=== PATIENT | male | born 1970 | race African-American/Black ===

== ENCOUNTER 2018-02-05 10:40 | Inpatient (IN) | payer SELFPAY ==
[~2018-02-05] VITALS: Ht 182.9 cm; Wt 108.9 kg
[2018-02-05 11:16] VITALS: BP 149/91
[2018-02-05 11:30] VITALS: BP 159/91
--- NOTE | 2018-02-05 11:38 | Emergency Room Report ---
History of Present Illness General Chief Complaint: Generalized Weakness Source: Patient Present Illness HPI This patient c/o feeling off balance and like he will fall for about 2-3 weeks. He has in fact fallen several times. No head trauma. Acc to him and he is walking abnormally. This is not new (within 24 hours) but patient finally came to ED. No similar history. Meds: Glipizide, Metformin, Amlodopine, Lisinopril Allergies: Coded Allergies: No Known Allergies (Unverified , 02/05/18) Nursing Documentation-[facility] Past Medical History: No History, Except For Hx Hypertension: Yes Hx Diabetes: Yes Review of Systems Constitutional: Reports: no symptoms Eye: Reports: no symptoms ENT: Reports: no symptoms Respiratory: Reports: no symptoms Cardiovascular: Reports: no symptoms Gastrointestinal: Reports: no symptoms Genitourinary: Reports: no symptoms Musculoskeletal: Reports: no symptoms Skin: Reports: no symptoms Psychiatric: Reports: no symptoms Neurological: Reports: no symptoms Endocrine: Reports: no symptoms Hematologic/Lymphatic: Reports: no symptoms Allergic: Reports: no symptoms Physical Exam Vital Signs Date Time Temp Pulse Resp B/P (MAP) Pulse Ox O2 Delivery O2 Flow Rate FiO2 02/05/18 10:59 98.8 94 29 174/103 93 Room Air 98.8 Sp02 EP Interpretation: reviewed, normal General Appearance: normal inspection, well appearing, no apparent distress, alert, GCS 15, non-toxic Head: normocephalic, atraumatic Eyes: bilateral eye normal inspection, bilateral eye PERRL, bilateral eye EOMI ENT: normal ENT inspection, hearing grossly normal, normal pharynx, no angioedema, normal voice, moist mucus membranes Neck: normal inspection, full range of motion, supple, no meningismus, no bony tend Respiratory: normal inspection, lungs clear, normal breath sounds, no rhonchi, no respiratory distress, no retraction, no accessory muscle use, no wheezing Cardiovascular #1: normal inspection, regular rate, rhythm, no edema Gastrointestinal: normal inspection, normal bowel sounds, non tender, soft, no mass, non-distended Musculoskeletal: gait/station normal, normal range of motion Neurologic: normal inspection, alert, oriented x3, responsive, motor strength/ tone normal, abnormal gait, other - finger to nose is subtly abnormal left side , heel to miller subtly abnormal left side. gait: ataxic Psychiatric: normal inspection, judgement/insight normal, memory normal Suicide Risk Assessment: Suicidal Ideation: No Had intent to initiate attempt: No Pt's plan for suicide attempt: No Has means to complete attempt: No Skin: normal inspection, normal color, no rash, warm/dry Medical Decision Making Diagnostic Impression: Primary Impression: Stroke ER Course 174/103 no treatment at this time clinically suspect subacute (2 week old) cerebellar infarct EKG Diagnostic Results EKG Time: 11:44 Rate: normal Rhythm: NSR ST Segments: no acute changes Other Impression NSR 82 NSST Rhythm Strip Diag. Results Rhythm Strip Time: 11:45 EP Interpretation: yes Rhythm: NSR Chest X-Ray Diagnostic Results Chest X-Ray Diagnostic Results : Chest X-Ray Ordered: Yes # of Views/Limited/Complete: 1 View Indication: Other Interpretation: no consolidation, no effusion, no pneumothorax, no acute cardiopulmonary disease CT/MRI/US Diagnostic Results CT/MRI/US Diagnostic Results : Imaging Test Ordered: head ct negative per rads Reevaluation Time: 12:38 Last Vital Signs Date Time Temp Pulse Resp B/P (MAP) Pulse Ox O2 Delivery O2 Flow Rate FiO2 02/05/18 11:16 97.5 99 15 149/91 99 Room Air 97.5 Status: unchanged Disposition: ADMITTED INPATIENT Referrals: NOT CHOSEN IPA/,REFERRING (PCP) Bassam Jarvis M.D. Feb 05, 2018 11:38
[2018-02-05 12:00] VITALS: BP 154/87
--- NOTE | 2018-02-05 12:14 | Diagnostic Imaging Report ---
Indication: Left-sided weakness, feeling off balance for about 2-3 weeks Technique: Continuous helical CT scanning of the head was performed without intravenous contrast material. Axial and coronal 5 mm sections were generated. Radiation dose was minimized using automated exposure control Dose: Total Dose Length Product - DLP 1400.[address] Dose Index - CTDIvol(s) 70.38 mGy. Comparison: none Findings: The ventricular system is normal in size and configuration. There is no shift of midline structures. No abnormal extra-axial fluid collections are noted. There is no evidence of intracerebral bleeding. No other abnormal high or low density areas are noted within the brain. Normal rojas-white differentiation. Visualized orbits and sinuses are unremarkable. The calvarium is intact. Impression: Normal CT scan of the head without contrast material. The CT scanner at [facility] is accredited by the [employer] and the scans are performed using protocols designed to limit radiation exposure to as low as reasonably achievable to attain images of sufficient resolution adequate for diagnostic evaluation.
--- NOTE | 2018-02-05 12:15 | Diagnostic Imaging Report ---
Indication: Chest pain Technique: One view of the chest Comparison: none Findings: Lungs and pleural spaces are clear. Heart size is upper limits of normal Impression: No acute process
[2018-02-05 12:21] LABS: HEMATOCRIT 48.5 % (42.0-52.0); HEMOGLOBIN 15.3 G/DL (14.2-18.0); MEAN CORPUSCULAR VOLUME 67 FL (80-99); PLATELET COUNT 284 K/UL (150-450); RED BLOOD COUNT 7.23 M/UL (4.70-6.10); RED CELL DISTRIBUTION WIDTH 12.5 % (11.6-14.8); WHITE BLOOD COUNT 9.4 K/UL (4.8-10.8)
[2018-02-05 12:41] LABS: ANION GAP 9 mmol/L (5-15); BLOOD UREA NITROGEN 21 mg/dL (7-18); CALCIUM 8.7 MG/DL (8.5-10.1); CARBON DIOXIDE 24 MMOL/L (21-32); CHLORIDE 103 MMOL/L (98-107); CREATININE 1.2 MG/DL (0.55-1.30); SODIUM 136 MMOL/L (136-145)
[2018-02-05 12:44] LABS: ALANINE AMINOTRANSFERASE 31 U/L (12-78); ALBUMIN 3.6 G/DL (3.4-5.0); ALBUMIN/GLOBULIN RATIO 0.9 (1.0-2.7); ALKALINE PHOSPHATASE 47 U/L (46-116); ASPARTATE AMINO TRANSFERASE 19 U/L (15-37); BILIRUBIN,TOTAL 0.7 MG/DL (0.2-1.0)
[2018-02-05] MEDS ORDERED: Aspirin Baby 81mg ORAL ONE (12:45)
[2018-02-05] MEDS ORDERED: AMLODIPINE BESY10 MG ORAL (13:10)
[2018-02-05] MEDS ORDERED: METFORMIN HCL500 M1 ORAL (13:10)
[2018-02-05] MEDS ORDERED: SIMVASTATIN20 MG ORAL (13:10)
[2018-02-05] MEDS ORDERED: BACLOFEN10 MG ORAL (13:10)
[2018-02-05] MEDS ORDERED: LISINOPRIL10 MG ORAL (13:10)
[2018-02-05] MEDS ORDERED: GLIPIZIDE5 MG ORAL (13:10)
[2018-02-05] MEDS ORDERED: Gadavist 7.5mMol/7.5ml vial IV PRN (15:00)
--- NOTE | 2018-02-05 15:04 | Consultation ---
Consult Note Consult Note This patient c/o feeling off balance and like he will fall for about 2-3 weeks. He has in fact fallen several times. No head trauma. Acc to him and he is walking abnormally. This is not new (within 24 hours) but patient finally came to ED. No similar history. Meds: Glipizide, Metformin, Amlodopine, Lisinopril Allergies: Coded Allergies: No Known Allergies (Unverified , 02/05/18) Nursing Documentation-[facility] Past Medical History: No History, Except For Hx Hypertension: Yes Hx Diabetes: Yes interviewed examined weak on left side Assessment/Plan Left sided weakness- 3 weeks duration- associated with falls long HTN long DM , on Insulin previously BP control BS control Hydrate MR Brain PT OT ASA, Lipitor per orders Osmel Tay MD Feb 05, 2018 15:04
[2018-02-05] MEDS: Lisinopril 20mg tab ORAL SCH (15:27)
[2018-02-05 16:00] VITALS: BP 140/88
[2018-02-05] MEDS: metFORMIN 500mg tab ORAL SCH (16:30)
[2018-02-05] MEDS: NovoLOG Insulin Flexpen SUBQ SCH ×2 (17:11→21:07)
--- NOTE | 2018-02-05 17:13 | Diagnostic Imaging Report ---
Indication: Vertigo, episodes of losing balance and falling recently Technique: Sagittal T1 FLAIR, axial T2 FLAIR, axial T2 fat sat PROPELLER, axial T1 FLAIR, axial T2*GRE, axial diffusion weighted images, axial and coronal postcontrast T1 FLAIR there is obtained through the brain. ADC maps constructed from the diffusion weighted images Comparison: CT scan performed earlier the same day Findings: No abnormal foci of restricted diffusion are demonstrated. No acute intracranial hemorrhage nor edema. A few scattered foci of high T2 signal are seen in the deep white matter, predominantly on the T2 FLAIR images, including a prominent one in the right posterior frontal lobe. A small old lacunar infarct is seen in the right side of the brainstem at the pontomedullary junction. No unusual contrast enhancement is evident in any of the above lesions or elsewhere. The vascular flow voids are preserved the visualized sinuses demonstrate minimal mucosal disease in the left maxillary sinus. The orbits are unremarkable Impression: Negative for acute intracranial bleed, mass effect, infarct, hemorrhage, or contrast enhancement. Small old lacunar infarct at the right pontomedullary junction Few scattered nonspecific T2 hyperintensities. Most likely small foci of deep white matter ischemia, but could also indicate demyelinating disease
[2018-02-05 18:32] LABS: APPEARANCE,URINE CLEAR; BILIRUBIN, URINE NEGATIVE (NEGATIVE); GLUCOSE, URINE (UA) 4+ (NEGATIVE); KETONES,URINE 2+ (NEGATIVE); LEUKOCYTE ESTERASE ,URINE 1+ (NEGATIVE); NITRITE,URINE NEGATIVE (NEGATIVE); PH,URINE 5 (4.5-8.0); PROTEIN,URINE 3+ (NEGATIVE); UROBILINOGEN,URINE 1 MG/DL (0.0-1.0)
[2018-02-05 18:37] LABS: COLOR,URINE YELLOW
[2018-02-05 20:00] VITALS: BP 131/75
[2018-02-05] MEDS: Tamsulosin 0.4mg cap ORAL SCH (21:05)
[2018-02-06] VITALS: BP 143/77
[2018-02-06 04:00] VITALS: BP 143/77
[2018-02-06 05:26] LABS: BASOPHILS % (AUTO) 1.1 % (0.0-2.0); EOSINOPHILS % (AUTO) 1.1 % (0.0-3.0); HEMATOCRIT 44.4 % (42.0-52.0); LYMPHOCYTES % (AUTO) 34.4 % (20.0-45.0); MEAN CORPUSCULAR VOLUME 68 FL (80-99); MONOCYTES % (AUTO) 6.5 % (1.0-10.0); PLATELET COUNT 227 K/UL (150-450); RED BLOOD COUNT 6.56 M/UL (4.70-6.10); RED CELL DISTRIBUTION WIDTH 12.4 % (11.6-14.8)
[2018-02-06 06:02] LABS: ALANINE AMINOTRANSFERASE 24 U/L (12-78); ALBUMIN 3.1 G/DL (3.4-5.0); ALBUMIN/GLOBULIN RATIO 0.9 (1.0-2.7); ALKALINE PHOSPHATASE 66 U/L (46-116); ANION GAP 8 mmol/L (5-15); ASPARTATE AMINO TRANSFERASE 11 U/L (15-37); BILIRUBIN,TOTAL 0.2 MG/DL (0.2-1.0); BLOOD UREA NITROGEN 16 mg/dL (7-18); CALCIUM 8.4 MG/DL (8.5-10.1); CARBON DIOXIDE 26 MMOL/L (21-32); CHLORIDE 105 MMOL/L (98-107); CHOLESTEROL 119 MG/DL (< 200); CREATININE 1.1 MG/DL (0.55-1.30); FERRITIN 129 NG/ML (8-388); GAMMA GLUTAMYL TRANSPEPTIDASE 19 U/L (5-85); HDL CHOLESTEROL 30 MG/DL (40-60); PHOSPHORUS 3.3 MG/DL (2.5-4.9); POTASSIUM 3.8 MMOL/L (3.5-5.1); SODIUM 139 MMOL/L (136-145); TRIGLYCERIDES 181 MG/DL (30-150)
[2018-02-06] MEDS: metFORMIN 500mg tab ORAL SCH ×3 (06:18→16:30)
[2018-02-06] MEDS: NovoLOG Insulin Flexpen SUBQ SCH ×4 (06:20→21:51)
[2018-02-06 06:28] LABS: % IRON SATURATION 15 % (15-50); IRON 32 ug/dL (50-175); TOTAL IRON BINDING CAPACITY 209 ug/dL (250-450)
[2018-02-06 08:00] VITALS: BP 165/100
[2018-02-06] MEDS: Docusate 100mg cap ORAL SCH ×3 (08:51→18:38)
[2018-02-06] MEDS: Lisinopril 20mg tab ORAL SCH ×2 (08:52→18:38)
--- NOTE | 2018-02-06 09:15 | Nephrology Progress Note ---
Assessment/Plan Problem List: (1) Stroke (2) Diabetes mellitus (3) Hypertension (4) High blood triglycerides Assessment MR Brain: Small old lacunar infarct at the right pontomedullary junction Left sided weakness- 3 weeks duration- associated with falls long HTN long DM , on Insulin previously Plan BP control add lopressor BS control Hydrate MR Brain noted PT OT ASA, Lipitor fish oil per orders Objective Objective Last 24 Hour Vital Signs Date Time Temp Pulse Resp B/P (MAP) Pulse Ox O2 Delivery O2 Flow Rate FiO2 02/06/18 08:52 165/100 02/06/18 08:51 110 165/100 02/06/18 08:00 98.1 83 20 165/100 (121) 98.1 02/06/18 08:00 110 02/06/18 04:00 77 02/06/18 00:00 97.3 85 20 143/77 (99) 98 97.3 02/06/18 00:00 83 02/05/18 21:00 Room Air 02/05/18 20:00 97.6 87 20 131/75 (93) 96 97.6 02/05/18 20:00 100 02/05/18 16:00 97.7 91 18 140/88 (105) 98 97.7 02/05/18 16:00 91 02/05/18 15:27 158/94 02/05/18 15:26 80 158/94 02/05/18 14:51 Room Air 02/05/18 12:00 97.2 83 14 154/87 96 Room Air 97.2 02/05/18 11:30 87 19 159/91 97 Room Air 02/05/18 11:16 97.5 99 15 149/91 99 Room Air 97.5 02/05/18 10:59 98.8 94 29 174/103 93 Room Air 98.8 Intake and Output 02/05/18 02/06/18 19:00 07:00 Intake Total 975 ml Output Total 800 ml Balance 175 ml IV Total 975 ml Output Urine Total 800 ml # Voids 2 Laboratory Tests 02/05/18 12:00: White Blood Count 9.4, Red Blood Count 7.23H, Hemoglobin 15.3, Hematocrit 48.5, Mean Corpuscular Volume 67L, Mean Corpuscular Hemoglobin 21.1L, Mean Corpuscular Hemoglobin Concent 31.5L, Red Cell Distribution Width 12.5, Platelet Count 284, Mean Platelet Volume 9.0, Neutrophils (%) (Auto) , Lymphocytes (%) (Auto) , Monocytes (%) (Auto) , Eosinophils (%) (Auto) , Basophils (%) (Auto) , Differential Total Cells Counted 100, Neutrophils % ( Manual) 66, Lymphocytes % (Manual) 23, Monocytes % (Manual) 9, Eosinophils % ( Manual) 1, Basophils % (Manual) 1, Band Neutrophils 0, Platelet Estimate Adequate, Platelet Morphology Normal, Hypochromasia 1+, Anisocytosis 1+, Microcytosis 3+, Prothrombin Time 10.5, Prothromb Time International Ratio 1.0, Sodium Level 136, Potassium Level 4.0, Chloride Level 103, Carbon Dioxide Level 24, Anion Gap 9, Blood Urea Nitrogen 21H, Creatinine 1.2, Estimat Glomerular Filtration Rate > 60, Glucose Level 251H, Calcium Level 8.7, Total Bilirubin 0.7 , Aspartate Amino Transf (AST/SGOT) 19, Alanine Aminotransferase (ALT/SGPT) 31, Alkaline Phosphatase 47, Total Protein 7.6, Albumin 3.6, Globulin 4.0, Albumin/ Globulin Ratio 0.9L 02/05/18 18:05: Urine Color Yellow, Urine Appearance Clear, Urine pH 5, Urine Specific [place] 1.020, Urine Protein 3+H, Urine Glucose (UA) 4+H, Urine Ketones 2+H, Urine Occult Blood Negative, Urine Nitrite Negative, Urine Bilirubin Negative, Urine Urobilinogen 1H, Urine Leukocyte Esterase 1+H, Urine RBC 0-2H, Urine WBC 20-30H , Urine Squamous Epithelial Cells None, Urine Bacteria Few, Urine Opiates Screen Negative, Urine Barbiturates Screen Negative, Phencyclidine (PCP) Screen Negative, Urine Amphetamines Screen Negative, Urine Benzodiazepines Screen Negative, Urine Cocaine Screen Negative, Urine Marijuana (THC) Screen Negative 02/06/18 05:00: White Blood Count 7.0, Red Blood Count 6.56H, Hemoglobin 14.0L, Hematocrit 44.4 , Mean Corpuscular Volume 68L, Mean Corpuscular Hemoglobin 21.3L, Mean Corpuscular Hemoglobin Concent 31.5L, Red Cell Distribution Width 12.4, Platelet Count 227, Mean Platelet Volume 9.0, Neutrophils (%) (Auto) 57.0, Lymphocytes (%) (Auto) 34.4, Monocytes (%) (Auto) 6.5, Eosinophils (%) (Auto) 1.1, Basophils (%) (Auto) 1.1, Sodium Level 139, Potassium Level 3.8, Chloride Level 105, Carbon Dioxide Level 26, Anion Gap 8, Blood Urea Nitrogen 16, Creatinine 1.1, Estimat Glomerular Filtration Rate > 60, Glucose Level 301H, Calcium Level 8.4L, Total Bilirubin 0.2, Aspartate Amino Transf (AST/SGOT) 11L, Alanine Aminotransferase (ALT/SGPT) 24, Alkaline Phosphatase 66, Total Protein 6.7, Albumin 3.1L, Globulin 3.6, Albumin/Globulin Ratio 0.9L, Hemoglobin A1c 9.6H, Uric Acid 6.5, Phosphorus Level 3.3, Magnesium Level 1.7L, Iron Level 32L , Total Iron Binding Capacity 209L, Percent Iron Saturation 15, Unsaturated Iron Binding 177, Ferritin 129, Gamma Glutamyl Transpeptidase 19, Troponin I 0.000, Pro-B-Type Natriuretic Peptide 9, Triglycerides Level 181H, Cholesterol Level 119, LDL Cholesterol 62, HDL Cholesterol 30L, Cholesterol/HDL Ratio 4.0, Vitamin B12 Level 408, Folate 13.9, Thyroid Stimulating Hormone (TSH) 1.285 Height (Feet): 6 Height (Inches): 0.00 Weight (Pounds): 240 General Appearance: no apparent distress Cardiovascular: tachycardia Abdomen: soft Neurologic: other - left weakness Osmel Tay MD Feb 06, 2018 09:15
[2018-02-06] MEDS ORDERED: Metoprolol Tartrate 12.5mg TAB ORAL SCH ×2 (09:30→21:00)
[2018-02-06 12:00] VITALS: BP 135/80
--- NOTE | 2018-02-06 13:05 | Consultation ---
Consult Note Consult Note NEUROLOGY CONSULTATION: Full note dictated #[id number] 48 y/o, RH, BM with long H/O poorly controlled HTN and DM, and smoking since his teens. About 4 weeks ago he noted some weakness on the left side and unsteadiness when he walked. The problem got worse over the next few days but then plateaued. He presented to the [facility] ER on 02/05/18. ON EXAM: Trace right VII central Left sided spasticity and paresis with G 4/5 in FE, G 4+/5 in FF, G 4-/5 in IP, G 4+/5 in ankle DF and TE. LD, F to N and H to S clumsy on left. IMPRESSION: Recent right ponto-medullary infarct - confirmed on MRI. Microvascular CVD REC: Risk factor modification. Plavix 75 mg q day. PT/OT F/U with neurologist of choice in 6-8 weeks. Jerrell Weir M.D., M.S.P.H. JERRELL WEIR Feb 06, 2018 13:05
[2018-02-06 16:00] VITALS: BP 120/77
[2018-02-06 20:00] VITALS: BP 149/84
--- NOTE | 2018-02-06 20:30 | Consultation ---
DATE OF CONSULTATION: 02/06/2018 HISTORY OF PRESENT ILLNESS: This is a 48-year-old male with a history of unknown psychiatric history, who has been admitted to the hospital with a chief complaint of feeling off-balance, and he has been falling down several times in the past few weeks. He has been on glipizide, metformin, amlodipine, and lisinopril, and the patient has been also having anxiety. I also asked him a question in terms of neurological symptoms. He did not have any head traumas. No seizures. No loss of consciousness. No tremors. He has not experienced any gait abnormalities and has been having no ataxia. His moral strength and tolerance are within normal limits. PAST PSYCHIATRIC HISTORY: He has a history of anxiety disorder. He denies any depressive symptoms. No hospitalization. No suicide attempt. PAST MEDICAL HISTORY: Significant for diabetes mellitus, hypertension, and hyperlipidemia. The CT and MRI of the brain have been in normal limits. No abnormalities was noted. No findings for acute intracranial bleed, mass effect, infarct, hemorrhage, or contrast enhancement. The MRI is significant for small foci of deep white matter, ischemic. The radiologist made a note that it could indicate demyelinating disease. ALLERGIES: No known drug allergies. SUBSTANCE ABUSE HISTORY: He denies any history of illicit drug use or alcohol. MENTAL STATUS EXAMINATION: The patient is alert and oriented times self, place, and situation. Thought process is linear. Thought content, no suicidal or homicidal ideations. ASSESSMENT: AXIS I Anxiety disorder. AXIS II Deferred. AXIS III Fall. AXIS IV Low. AXIS V Global assessment of functioning is 25. PLAN: The patient did not have a stroke. There is no indication he had stroke. The MRI/CT was overall within normal limits. There were white foci on MRI that could indicate demyelinating disease. Therefore, he needs to follow with outpatient neurologist. No medication will be given at this time. Xavier Luo M.D. DR: ABDULLAHI JOB#: [id number] CC:
--- NOTE | 2018-02-06 21:30 | Consultation ---
DATE OF CONSULTATION: 02/06/2018 NEUROLOGY CONSULTATION CONSULTING PHYSICIAN: Terrance Weir M.D. REQUESTING PHYSICIAN: Valery Haines M.D. HISTORY: Mr. Rome Lee is a 48-year-old, right-handed, black gentleman, with a long history of uncontrolled hypertension, diabetes mellitus, and smoking since he was in his teens. He was functioning relatively well until approximately 3-4 weeks ago when he noted some weakness on the left side and unsteadiness when he walked. The problem got worse over the next few days and he sustained a few falls. There was no head injury associated with these falls. The problem has since plateaued, but he was brought into the hospital on 02/05/2018 as he was still nonfunctional. At this point in time, he is quite aware that his left side is weak and in addition, he has unsteady on his feet. He denies any similar symptoms in the past. PAST MEDICAL HISTORY: Significant for hypertension, diabetes mellitus, tobacco smoking since his teens. FAMILY HISTORY: Significant for high blood pressure and diabetes mellitus. PERSONAL HISTORY: Home: He lives with his son. 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 Habits: He has been smoking since he was in his late teens. At this point in time, he smokes approximately 1 pack of cigarettes per day. He denies the use of illicit drugs. He does consume 1-2 alcoholic drinks in a month. PRESENT MEDICATIONS: metoprolol, lisinopril, aspirin 81 mg, fish oil, famotidine, Colace, Lipitor, Flomax, Glucophage, insulin, and Norvasc. PHYSICAL EXAMINATION: GENERAL: He is a well-developed, well-nourished, obese, black gentleman sitting up in a chair, in no acute distress. VITAL SIGNS: Pulse 87/minute, blood pressure 135/80 mmHg, respirations 18/minute, and temperature 98.6 degrees Fahrenheit. HEAD: Normocephalic and atraumatic. EENT: Examination benign. NECK: No neck rigidity was observed. NEUROLOGICAL EXAMINATION: MENTAL STATUS EXAMINATION: He was awake and alert. He was oriented to person, place, and time. He was able to recall 3/3 words immediately and after 1 and 3 minutes. He was able to remember Presidents, Trump through [place] senior with hints. His mathematical skills were good. His visuospatial function was preserved. SPEECH: He had no dysarthria. LANGUAGE: He had no aphasia. CRANIAL NERVE EXAMINATION: II: The visual bates were intact on confrontation testing. III, IV & : The external ocular movements were full and the pupils 3 mm in diameter, equal, round, regular, and reactive to light. V: He had normal facial sensations, and the temporales, masseters, and pterygoids functioned normally. VII: He had a trace right VII central facial paresis. VIII: He was able to hear well bilaterally and had no nystagmus. IX: The palate moved symmetrically on phonation. X: He had no hoarseness of voice. XI: The sternocleidomastoids and trapezii functioned normally. XII: The tongue was in the midline without any fasciculations or atrophy. MOTOR SYSTEM: The tone was increased on the left side with a significant degree of spasticity. Examination of muscle mass revealed no focal wasting. Examination of power revealed G 5/5 power except for a left paresis with G 4/5 power in the finger extensors, G 4+/5 in the finger flexors, G 4-/5 in the iliopsoas, and G 4+/5 in the ankle dorsiflexors and toe extensors. SENSORY EXAMINATION: He was able to discern between light touch well all over the body. Graphesthesia was also normal bilaterally. COORDINATION: [id number], [id number], and rapid alternating movement testing were all clumsy on the left side and normal on the right side. STANCE: He stood up with support. He was unsteady when he was made to stand up and stood up with a wide base. GAIT: He walked with left paretic and ataxic gait. DIAGNOSTIC IMPRESSION: 1. Mr. Rome Lee is a 48-year-old, right-handed, black gentleman, with a long history of poorly controlled hypertension and diabetes mellitus and tobacco smoking since his teens, who approximately 3 to 4 weeks ago suddenly noticed some weakness on the left side and unsteadiness on his feet. The problem got worse over the next few days and have since plateaued. 2. On neurological examination at this time, he does have a trace right VII central facial paresis, left-sided spasticity, a left paresis, ataxia on the left side in both upper and lower extremities, and a left paretic and ataxic gait. 3. Laboratory data obtained thus far have revealed a relatively normal CBC. Chemistry panel with a BUN elevated to 21, creatinine elevated to 1.2, glucose elevated to 301, and hemoglobin A1c elevated to 9.6%. His lipid panel reveals a total cholesterol of 119 with an LDL of 62 and HDL of 30. His B12, folate, and TSH are all within normal range. His urine toxicology screen is benign for any drugs of abuse. 4. The MRI scan of the brain revealed a right pontomedullary infarct of indeterminate age, but definitely not acute. In addition, some deep white matter changes were also seen. 5. The patient's history, neurological examination, laboratory data, and imaging studies are most compatible with a recent right pontomedullary infarct causing mild right facial paresis, significant left hemiparesis with clumsiness on that side, and an ataxic left paretic gait. RECOMMENDATIONS: 1. The patient was made aware of the above mentioned findings. 2. He was told about the reasons for microvascular cerebrovascular disease, which in his case include hypertension, diabetes mellitus, and smoking. 3. Risk factor modification should be implemented. 4. He should be started on Plavix 75 mg daily for secondary stroke prevention. 5. Physical and occupational therapy should be continued. 6. The patient will be observed closely and depending on how he fares, further recommendations will be given. Thank you for entrusting me with the care of Mr. Lee. I shall follow him with you. Terrance Weir M.D., M.S.P.H. DR: JERMAINE JOB#: [id number] KAREN
[2018-02-06] MEDS: Tamsulosin 0.4mg cap ORAL SCH (21:50)
--- NOTE | 2018-02-06 22:15 | History and Physical Report ---
DATE OF ADMISSION: 02/05/2018 HISTORY OF PRESENT ILLNESS: The patient is admitted to rule out stroke. The patient states that he has been ataxic for four weeks status post multiple falls, left-sided weakness for the past two to three weeks. The patient is also admitted to rule out stroke. The patient also has a residual left-sided weakness in the past that, according to him, has been there for the past two to three weeks. He came apparently too late for this, but is being admitted to rule out new onset CVA. On the day that he was admitted, I have asked Dr. Weir see him for neurological consult and Dr. Luo is also helping out as well. The patient has been having ataxic gait and status post multiple falls. According to the ER doctor, CT of the brain did not show any acute problems. The patient is to rule out new onset stroke. PAST MEDICAL HISTORY: Significant for hypertension, NIDDM, hyperlipidemia, history of possible TIA/CVA in the past, and hyperlipidemia. PAST SURGICAL HISTORY: Left hand surgery. ALLERGIES: No known allergies. MEDICATIONS: Takes glipizide, lisinopril, metformin, and simvastatin. SOCIAL HISTORY: History of smoking and history of drug abuse. FAMILY HISTORY: Does have history of hypertension. REVIEW OF SYSTEMS: HEENT: Denies headaches. RESPIRATORY: Denies shortness of breath. Denies cough. CARDIOVASCULAR: Denies chest pain. Denies orthopnea. GASTROINTESTINAL: Denies nausea, vomiting, or diarrhea. EXTREMITIES: Denies any significant pain. CENTRAL NERVOUS SYSTEM: No change in vision or speech pattern, but does have multiple falls and ataxic and has been having left-sided weakness for the past two to three weeks. PHYSICAL EXAMINATION: VITAL SIGNS: Temperature 98.1, pulse 110, and blood pressure 165/100. HEENT: PERRLA. NECK: Supple. No lymphadenopathy. CHEST: Clear to auscultation. GASTROINTESTINAL: Soft, nontender, and nondistended. No organomegaly. EXTREMITIES: No edema. Reflexes equal on both sides. Moves all four extremities. Has left-sided residual weakness. CENTRAL NERVOUS SYSTEM: Denies change in vision or speech pattern. LABORATORY AND DIAGNOSTIC DATA: WBC of 9.4, hemoglobin 15.3, and platelets of 284. Sodium 136, potassium 4, BUN of 21, creatinine 1.2, and glucose of 251. ASSESSMENT AND PLAN: 1. Rule out new onset stroke, has residual left-sided weakness from previous stroke. 2. Hypertension. 3. Diabetes. 4. The patient also is noncompliant. I have asked Dr. Luo, Dr. Weir, and Dr. Tay to see the patient for the management of the above-mentioned diagnoses and treatment. Valery Haines M.D. DR: Miguel JOB#: [id number] CC:
[2018-02-07] VITALS: BP 147/88
[2018-02-07 04:00] VITALS: BP 158/96
[2018-02-07] MEDS: NovoLOG Insulin Flexpen SUBQ SCH ×4 (06:17→20:55)
[2018-02-07] MEDS: metFORMIN 500mg tab ORAL SCH ×3 (06:30→17:06)
[2018-02-07 08:19] VITALS: BP 153/80
[2018-02-07] MEDS ORDERED: HydrALAZINE 25mg tab ORAL PRN ×2 (08:30→14:00)
[2018-02-07] MEDS: Docusate 100mg cap ORAL SCH ×3 (08:32→17:05)
[2018-02-07] MEDS: Lisinopril 20mg tab ORAL SCH ×2 (08:33→17:06)
[2018-02-07] MEDS ORDERED: Metoprolol 25mg tab ORAL SCH (09:00)
--- NOTE | 2018-02-07 10:46 | Nephrology Progress Note ---
Assessment/Plan Problem List: (1) Stroke (2) Diabetes mellitus (3) Hypertension (4) High blood triglycerides Assessment MR Brain: Small old lacunar infarct at the right pontomedullary junction Left sided weakness- 3 weeks duration- associated with falls long HTN long DM , on Insulin previously Plan BP control add lopressor and increase dose BS control Hydrate MR Brain noted PT OT ASA, Lipitor fish oil, lipitor , Plavix per orders med surg Subjective ROS Limited/Unobtainable: No Constitutional: Reports: malaise Objective Objective Last 24 Hour Vital Signs Date Time Temp Pulse Resp B/P (MAP) Pulse Ox O2 Delivery O2 Flow Rate FiO2 02/07/18 09:35 Room Air 02/07/18 08:35 80 153/80 02/07/18 08:33 153/80 02/07/18 08:32 80 153/80 02/07/18 08:19 97.7 80 20 153/80 (104) 100 97.7 02/07/18 07:57 91 02/07/18 04:00 97.7 66 20 158/96 (116) 100 97.7 02/07/18 04:00 66 02/07/18 00:00 82 02/07/18 00:00 97.7 82 16 147/88 (107) 100 97.7 02/06/18 21:50 84 138/78 02/06/18 21:00 Room Air 02/06/18 20:00 98.8 81 18 149/84 (105) 100 98.8 02/06/18 20:00 81 02/06/18 18:38 135/80 02/06/18 16:00 97.9 83 20 120/77 (91) 100 97.9 02/06/18 16:00 87 02/06/18 12:00 98.6 87 18 135/80 (98) 99 98.6 02/06/18 12:00 87 Intake and Output 02/06/18 02/07/18 19:00 07:00 Intake Total 360 ml 200 ml Output Total 1100 ml 400 ml Balance -740 ml -200 ml Intake Oral 360 ml 200 ml Output Urine Total 1100 ml 400 ml Height (Feet): 6 Height (Inches): 0.00 Weight (Pounds): 240 General Appearance: no apparent distress Cardiovascular: normal rate Respiratory/Chest: lungs clear Abdomen: soft Neurologic: other - left weak Fouladian,Osmel MD Feb 07, 2018 10:46
[2018-02-07 12:22] VITALS: BP 162/93
[2018-02-07] MEDS ORDERED: Gadavist 7.5mMol/7.5ml vial IV PRN (15:00)
[2018-02-07 16:00] VITALS: BP 146/95
--- NOTE | 2018-02-07 16:48 | Neurology Progress Note ---
Interim History Interim History Interim History Mr. Lee feels well. The weakness on the left side is about the same. The walking is steadier with a cane. He denies any new neurologic symptoms. He is eager to get more PT/OT. Review of Systems Neuro Review of Systems Benign. Objective Physical Exam Last Vital Signs Date Time Temp Pulse Resp B/P (MAP) Pulse Ox O2 Delivery O2 Flow Rate FiO2 02/07/18 12:28 162/93 02/07/18 12:22 97.7 71 20 100 97.7 02/07/18 09:35 Room Air Neurologic Exam Objective PHYSICAL EXAMINATION: GENERAL: He is a well-developed, well-nourished, obese, black gentleman lying in bed, in no acute distress. HEAD: Normocephalic and atraumatic. EENT: Examination benign. NECK: No neck rigidity was observed. NEUROLOGICAL EXAMINATION: MENTAL STATUS EXAMINATION: He was awake and alert. He was oriented to person, place, and time. He was able to recall 3/3 words immediately and after 1 and 3 minutes. He was able to remember Presidents, Trump through [employer] senior with hints. His mathematical skills were good. His visuospatial function was preserved. SPEECH: He had no dysarthria. LANGUAGE: He had no aphasia. CRANIAL NERVE EXAMINATION: II: The visual bates were intact on confrontation testing. III, IV & : The external ocular movements were full and the pupils 3 mm in diameter, equal, round, regular, and reactive to light. V: He had normal facial sensations, and the temporales, masseters, and pterygoids functioned normally. VII: He had a trace right VII central facial paresis. VIII: He was able to hear well bilaterally and had no nystagmus. IX: The palate moved symmetrically on phonation. X: He had no hoarseness of voice. XI: The sternocleidomastoids and trapezii functioned normally. XII: The tongue was in the midline without any fasciculations or atrophy. MOTOR SYSTEM: The tone was increased on the left side with a significant degree of spasticity. Examination of muscle mass revealed no focal wasting. Examination of power revealed G 5/5 power except for a left paresis with G 4/5 power in the finger extensors, G 4+/5 in the finger flexors, G 4-/5 in the iliopsoas, and G 4+/5 in the ankle dorsiflexors and toe extensors. SENSORY EXAMINATION: He was able to discern between light touch well all over the body. Graphesthesia was also normal bilaterally. COORDINATION: [id number], [id number], and rapid alternating movement testing were all clumsy on the left side and normal on the right side. STANCE: He stood up with support - he was steadier than yesterday. GAIT: He walked with left paretic and mildly ataxic gait. Impression/Recommendations Diagnostic Impression 1. Mr. Rome Lee is a 48-year-old, right-handed, black gentleman, with a long history of poorly controlled hypertension and diabetes mellitus and tobacco smoking since his teens, who approximately 3 to 4 weeks ago suddenly noticed some weakness on the left side and unsteadiness on his feet. The problem got worse over the next few days and have since plateaued. 2. He feels well. The weakness on the left side is about the same. The walking is steadier with a cane. He denies any new neurologic symptoms. He is eager to get more PT/OT. 3. On neurological examination at this time, he does have a trace right VII central facial paresis, left-sided spasticity, a left paresis, ataxia on the left side in both upper and lower extremities, and a left paretic and ataxic gait. 4. Laboratory data obtained thus far have revealed a relatively normal CBC. Chemistry panel with a BUN elevated to 21, creatinine elevated to 1.2, glucose elevated to 301, and hemoglobin A1c elevated to 9.6%. His lipid panel reveals a total cholesterol of 119 with an LDL of 62 and HDL of 30. His B12, folate, and TSH are all within normal range. His urine toxicology screen is benign for any drugs of abuse. 5. The MRI scan of the brain revealed a right pontomedullary infarct of indeterminate age, but definitely not acute. In addition, some deep white matter changes were also seen. 6. The patient's history, neurological examination, laboratory data, and imaging studies are most compatible with a recent right pontomedullary infarct causing mild right facial paresis, significant left hemiparesis with clumsiness on that side, and an ataxic left paretic gait. Recommendations 1. Continue present management. 2. Strict risk factor modification. 3. Plavix 75 mg daily. 4. Physical and occupational therapy. Jerrell Chambers M.D., Val[place]. JERRELL CHAMBERS Feb 07, 2018 16:48
[2018-02-07] MEDS ORDERED: 1/2 NS 1000ml IV ONE (17:18)
--- NOTE | 2018-02-07 17:31 | General Progress Note ---
Assessment/Plan Problem List: (1) Stroke ICD Codes: I63.9 - Cerebral infarction, unspecified SNOMED: 882160946 (2) Diabetes mellitus ICD Codes: E11.9 - Type 2 diabetes mellitus without complications SNOMED: 05210771 (3) Hypertension ICD Codes: I10 - Essential (primary) hypertension SNOMED: 00729171 Status: progressing Assessment/Plan dr elkins saw him cva h/o of cav dm htn sugars are improving Subjective ROS Limited/Unobtainable: Yes Allergies: Coded Allergies: No Known Allergies (Unverified , 02/05/18) Objective Last 24 Hour Vital Signs Date Time Temp Pulse Resp B/P (MAP) Pulse Ox O2 Delivery O2 Flow Rate FiO2 02/07/18 17:06 146/95 02/07/18 16:00 98.4 76 20 146/95 (112) 100 98.4 02/07/18 12:28 162/93 02/07/18 12:22 97.7 71 20 162/93 (116) 100 97.7 02/07/18 09:35 Room Air 02/07/18 08:35 80 153/80 02/07/18 08:33 153/80 02/07/18 08:32 80 153/80 02/07/18 08:19 97.7 80 20 153/80 (104) 100 97.7 02/07/18 07:57 91 02/07/18 04:00 97.7 66 20 158/96 (116) 100 97.7 02/07/18 04:00 66 02/07/18 00:00 82 02/07/18 00:00 97.7 82 16 147/88 (107) 100 97.7 02/06/18 21:50 84 138/78 02/06/18 21:00 Room Air 02/06/18 20:00 98.8 81 18 149/84 (105) 100 98.8 02/06/18 20:00 81 02/06/18 18:38 135/80 Intake and Output 02/06/18 02/07/18 19:00 07:00 Intake Total 360 ml 200 ml Output Total 1100 ml 400 ml Balance -740 ml -200 ml Intake Oral 360 ml 200 ml Output Urine Total 1100 ml 400 ml Height (Feet): 6 Height (Inches): 0.00 Weight (Pounds): 240 Neck: supple Cardiovascular: normal rate Respiratory/Chest: lungs clear Abdomen: soft - Valery Serrato MD Feb 07, 2018 17:31
[2018-02-07 20:00] VITALS: BP 159/98
[2018-02-07] MEDS: Metoprolol 25mg tab ORAL SCH (20:54)
[2018-02-07] MEDS ORDERED: Tamsulosin 0.4mg cap ORAL SCH (21:00)
[2018-02-08] VITALS: BP 157/89
[2018-02-08 04:00] VITALS: BP 149/77
[2018-02-08] MEDS: metFORMIN 500mg tab ORAL SCH ×2 (06:13→11:59)
[2018-02-08] MEDS: NovoLOG Insulin Flexpen SUBQ SCH ×2 (06:14→11:59)
[2018-02-08 08:00] VITALS: BP 159/89
[2018-02-08] MEDS: Metoprolol 25mg tab ORAL SCH (08:17)
[2018-02-08] MEDS: Docusate 100mg cap ORAL SCH ×2 (08:17→15:04)
[2018-02-08] MEDS: Lisinopril 20mg tab ORAL SCH (08:18)
[2018-02-08] MEDS ORDERED: Metoprolol 25mg tab ORAL SCH (09:45)
--- NOTE | 2018-02-08 11:09 | Nephrology Progress Note ---
Assessment/Plan Problem List: (1) Stroke (2) Diabetes mellitus (3) Hypertension (4) High blood triglycerides Assessment MR Brain: Small old lacunar infarct at the right pontomedullary junction Left sided weakness- 3 weeks duration- associated with falls long HTN long DM , on Insulin previously Plan BP control lopressor and increase dose add hydralazine BS control Hydrate MR Brain noted PT OT ASA, Lipitor fish oil, lipitor , Plavix per orders med surg Subjective ROS Limited/Unobtainable: No Constitutional: Reports: malaise, weakness Objective Objective Last 24 Hour Vital Signs Date Time Temp Pulse Resp B/P (MAP) Pulse Ox O2 Delivery O2 Flow Rate FiO2 02/08/18 09:00 Room Air 02/08/18 08:18 159/89 02/08/18 08:17 71 159/89 02/08/18 08:17 71 159/89 02/08/18 08:00 97.7 71 21 159/89 (112) 96 97.7 02/08/18 04:00 98.0 81 20 149/77 (101) 97 98.0 02/08/18 00:00 98.0 73 21 157/89 (111) 96 98.0 02/07/18 21:00 Room Air 02/07/18 20:54 82 159/98 02/07/18 20:00 98.2 82 20 159/98 (118) 95 98.2 02/07/18 17:06 146/95 02/07/18 16:00 98.4 76 20 146/95 (112) 100 98.4 02/07/18 12:28 162/93 02/07/18 12:22 97.7 71 20 162/93 (116) 100 97.7 Intake and Output 02/07/18 02/08/18 19:00 07:00 Intake Total 220 ml Balance 220 ml Intake Oral 220 ml # Voids 3 3 # Bowel Movements 1 Height (Feet): 6 Height (Inches): 0.00 Weight (Pounds): 240 General Appearance: no apparent distress Cardiovascular: normal rate Respiratory/Chest: lungs clear Abdomen: soft Objective no change Osmel Tay MD Feb 08, 2018 11:09
--- NOTE | 2018-02-08 11:35 | Neurology Progress Note ---
Interim History Interim History Interim History Mr. Lee feels well. The weakness on the left side is about the same. The walking is steadier with a cane. He denies any new neurologic symptoms. He is eager to go home. Review of Systems Neuro Review of Systems Benign. Objective Physical Exam Last Vital Signs Date Time Temp Pulse Resp B/P (MAP) Pulse Ox O2 Delivery O2 Flow Rate FiO2 02/08/18 09:00 Room Air 02/08/18 08:18 159/89 02/08/18 08:17 71 02/08/18 08:00 97.7 21 96 97.7 Neurologic Exam Objective PHYSICAL EXAMINATION: GENERAL: He is a well-developed, well-nourished, obese, black gentleman lying in bed, in no acute distress. HEAD: Normocephalic and atraumatic. EENT: Examination benign. NECK: No neck rigidity was observed. NEUROLOGICAL EXAMINATION: MENTAL STATUS EXAMINATION: He was awake and alert. He was oriented to person, place, and time. He was able to recall 3/3 words immediately and after 1 and 3 minutes. He was able to remember Presidents, Trump through [employer] senior with hints. His mathematical skills were good. His visuospatial function was preserved. SPEECH: He had no dysarthria. LANGUAGE: He had no aphasia. CRANIAL NERVE EXAMINATION: II: The visual bates were intact on confrontation testing. III, IV & : The external ocular movements were full and the pupils 3 mm in diameter, equal, round, regular, and reactive to light. V: He had normal facial sensations, and the temporales, masseters, and pterygoids functioned normally. VII: He had a trace right VII central facial paresis. VIII: He was able to hear well bilaterally and had no nystagmus. IX: The palate moved symmetrically on phonation. X: He had no hoarseness of voice. XI: The sternocleidomastoids and trapezii functioned normally. XII: The tongue was in the midline without any fasciculations or atrophy. MOTOR SYSTEM: The tone was increased on the left side with a significant degree of spasticity. Examination of muscle mass revealed no focal wasting. Examination of power revealed G 5/5 power except for a left paresis with G 4/5 power in the finger extensors, G 4+/5 in the finger flexors, G 4-/5 in the iliopsoas, and G 4+/5 in the ankle dorsiflexors and toe extensors. SENSORY EXAMINATION: He was able to discern between light touch well all over the body. Graphesthesia was also normal bilaterally. COORDINATION: [id number], ihlr-va-[id number], and rapid alternating movement testing were all clumsy on the left side and normal on the right side. STANCE: He stood up with support - he was steadier than yesterday. GAIT: He walked with left paretic and mildly ataxic gait. Impression/Recommendations Diagnostic Impression 1. Mr. Rome Lee is a 48-year-old, right-handed, black gentleman, with a long history of poorly controlled hypertension and diabetes mellitus and tobacco smoking since his teens, who approximately 3 to 4 weeks ago suddenly noticed some weakness on the left side and unsteadiness on his feet. The problem got worse over the next few days and have since plateaued. 2. He feels well. The weakness on the left side is about the same. The walking is steadier with a cane. He denies any new neurologic symptoms. He is eager to get more PT/OT. 3. On neurological examination at this time, he does have a trace right VII central facial paresis, left-sided spasticity, a left paresis, ataxia on the left side in both upper and lower extremities, and a left paretic and ataxic gait - his gait is better today. 4. Laboratory data obtained thus far have revealed a relatively normal CBC. Chemistry panel with a BUN elevated to 21, creatinine elevated to 1.2, glucose elevated to 301, and hemoglobin A1c elevated to 9.6%. His lipid panel reveals a total cholesterol of 119 with an LDL of 62 and HDL of 30. His B12, folate, and TSH are all within normal range. His urine toxicology screen is benign for any drugs of abuse. 5. The MRI scan of the brain revealed a right pontomedullary infarct of indeterminate age, but definitely not acute. In addition, some deep white matter changes were also seen. 6. The patient's history, neurological examination, laboratory data, and imaging studies are most compatible with a recent right pontomedullary infarct causing mild right facial paresis, significant left hemiparesis with clumsiness on that side, and an ataxic left paretic gait. Recommendations 1. Continue present management. 2. Strict risk factor modification. 3. Plavix 75 mg daily. 4. Physical and occupational therapy. 5. Can be discharged home with supervision from a neurologic point of view. Jerrell Chambers M.D., M.S.P.H. JERRELL CHAMBERS Feb 08, 2018 11:35
[2018-02-08 12:00] VITALS: BP 159/89
[2018-02-08] MEDS ORDERED: HydrALAZINE 25mg tab ORAL SCH (14:00)
--- NOTE | 2018-02-08 14:51 | General Progress Note ---
Assessment/Plan Problem List: (1) Stroke ICD Codes: I63.9 - Cerebral infarction, unspecified SNOMED: 711113786 (2) Diabetes mellitus ICD Codes: E11.9 - Type 2 diabetes mellitus without complications SNOMED: 33567040 (3) Hypertension ICD Codes: I10 - Essential (primary) hypertension SNOMED: 18863371 Status: progressing Assessment/Plan dr elkins cleared him dc pt see dc summary for details Subjective Allergies: Coded Allergies: No Known Allergies (Unverified , 02/05/18) Objective Last 24 Hour Vital Signs Date Time Temp Pulse Resp B/P (MAP) Pulse Ox O2 Delivery O2 Flow Rate FiO2 02/08/18 12:00 97.7 85 22 159/89 (112) 98 97.7 02/08/18 12:00 71 159/89 02/08/18 09:00 Room Air 02/08/18 08:18 159/89 02/08/18 08:17 71 159/89 02/08/18 08:17 71 159/89 02/08/18 08:00 97.7 71 21 159/89 (112) 96 97.7 02/08/18 04:00 98.0 81 20 149/77 (101) 97 98.0 02/08/18 00:00 98.0 73 21 157/89 (111) 96 98.0 02/07/18 21:00 Room Air 02/07/18 20:54 82 159/98 02/07/18 20:00 98.2 82 20 159/98 (118) 95 98.2 02/07/18 17:06 146/95 02/07/18 16:00 98.4 76 20 146/95 (112) 100 98.4 Intake and Output 02/07/18 02/08/18 19:00 07:00 Intake Total 220 ml Balance 220 ml Intake Oral 220 ml # Voids 3 3 # Bowel Movements 1 Height (Feet): 6 Height (Inches): 0.00 Weight (Pounds): 240 Valery Haines MD Feb 08, 2018 14:51
[2018-02-08 16:03] VITALS: BP 150/79
[2018-02-08] MEDS ORDERED: Metoprolol Tartrate 50mg tab ORAL SCH (21:00)
--- NOTE | 2018-02-09 14:20 | General Progress Note ---
Assessment/Plan Assessment/Plan AXIS I Anxiety disorder. AXIS II Deferred. AXIS III Fall. AXIS IV Low. AXIS V Global assessment of functioning is 25. Subjective Date patient seen: Feb 09, 2018 Neurologic/Psychiatric: Reports: anxiety, depressed Allergies: Coded Allergies: No Known Allergies (Unverified , 02/05/18) Objective Last 24 Hour Vital Signs Date Time Temp Pulse Resp B/P (MAP) Pulse Ox O2 Delivery O2 Flow Rate FiO2 02/08/18 16:03 79 150/79 (102) 02/08/18 15:09 174/99 Intake and Output 02/08/18 02/09/18 19:00 07:00 Intake Total 840 ml Output Total 300 ml Balance 540 ml Intake Oral 840 ml Output Urine Total 300 ml # Voids 3 Height (Feet): 6 Height (Inches): 0.00 Weight (Pounds): 240 Xavier Luo MD Feb 09, 2018 14:20
--- NOTE | 2018-02-10 12:48 | Discharge Summary ---
Discharge Summary Discharge Summary _ DATE OF ADMISSION: 02/05/2018 DATE OF DISCHARGE: 02/08/2018 REASON FOR ADMISSION: 48 years old male with past medical history of hypertension, diabetes mellitus, old CVA with residual left-sided weakness, presented to emergency department with complaint of feeling off-balance. Patient reported falls several times , no injury. According to him and his , he walks abnormally . This was not new (within 24 hours), but he eventually came up for evaluation . Upon evaluation vital signs revealed elevated blood pressure 174/103. Laboratory workup revealed no leukocytosis , stable hemoglobin and hematocrit. Stable renal parameters and electrolytes. Troponin negative. Urine toxicology screen was negative. Urinalysis with evidence of pyuria, + 3 protein ,+4 glucose and few bacteria. Chest x-ray revealed no acute cardiopulmonary pathology. CT of the head revealed no acute intracranial pathology. Patient admitted with diagnoses of rule out acute stroke, hypertension, diabetes mellitus, history of CVA with residual left-sided weakness, noncompliance. CONSULTANTS: neurologist Dr. Hale pamphlet distributor Dr. Tay psychiatrist [facility]: Patient admitted. MRI of the brain revealed no acute intracranial bleeding, mass effect, infarct or hemorrhage. Small old lacunar infarct in the right pontine medullary junction noted. Neurologist closely followed. Per neurologist, patient's history, neurological examination ,laboratory data, and imaging studies were most compatible with recent right pontomedullary infarct causing mild right facial paresis, significant left hemiparesis with clumsiness on that side and ataxic left paretic gait. Lipid panel revealed elevated triglycerides 181 and stable LDL. and total cholesterol. Patient was counseled on low-fat low-cholesterol diabetic diet. B12, folate, and TSH were all within normal range. Urine toxicology screen was benign for any drug abuse. Patient was continued on antiplatelet regimen with aspirin and Plavix. Statin continued along with fish oil. Patient was working with physical and occupational therapists. Fall precautions maintained. Senior Data Warehouse Developer recommended continue strict risk modification. Blood pressure was initially uncontrolled. Antihypertensive medication regimen was optimized by pamphlet distributor. Blood pressure was managed with beta ciro, dose of which was subsequently increased and hydralazine was added for improved control. Blood pressure eventually stabilized. Blood sugar was managed with metformin and sliding scale insulin. Hemoglobin A1c 9.6 not at goal. Patient needs further optimization of anti-glycemic regimen as outpatient. Urine culture was negative. Patient was on gentle IV hydration. GI prophylaxis provided. Psychiatry seen and evaluated the patient , and diagnosed patient with anxiety disorder. Psychiatrist optimized psychiatric medication regimen, and provided patient with supportive therapy. Patient clinically improved and was stable for discharge home FINAL DIAGNOSES: Recent right pontomedullary infarct with mild right facial paresis, significant left hemiparesis and ataxic left paretic gait Hypertension Diabetes mellitus History of CVA with residual left-sided weakness Noncompliance Anxiety disorder DISCHARGE MEDICATIONS: See Medication Reconciliation list. DISCHARGE INSTRUCTIONS: Patient was discharged home with home .. Follow up with primary care provider in one week.] I have been assigned to dictate discharge summary for this account. I was not involved in the patient's management. Beronica Garcia NP Feb 10, 2018 12:48
--- NOTE | 2018-02-13 00:46 | Cardiology Report ---
APPROVED REPORT EKG Measurement Heart [id number] Normal sinus rhythm Nonspecific ST and T wave abnormality Possible septal infarct, age undetermined Abnormal ECG
== END 2018-02-08 16:00 | disposition home or self-care (01) | DRG 57 ==
LOC: EMR 11:29 → 2E 12:26 → EDBEDREQ 13:11 → 2E 02-06 21:42 → 4E 02-07 13:03
DX: I69.354 Hemiplegia and hemiparesis following cerebral infarction affecting left non-dominant side (principal); I69.393 Ataxia following cerebral infarction; Z91.19 Patient's noncompliance with other medical treatment and regimen; I69.392 Facial weakness following cerebral infarction; F41.9 Anxiety disorder, unspecified; E78.5 Hyperlipidemia, unspecified; E11.9 Type 2 diabetes mellitus without complications; F17.200 Nicotine dependence, unspecified, uncomplicated; Z79.4 Long term (current) use of insulin; E78.1 Pure hyperglyceridemia
CPT/HCPCS: 36415; 70450; 70552; 71045; 80053; 80061; 80307; 81001; 82607; 82728; 82746; 82962; 82977; 83036; 83540; 83550; 83735; 83880; 84100; 84443; 84484; 84550; 85007; 85025; 85610; 87086; 93005; 93880; A9585; J1815